=== PATIENT | female | born 1975 | race Caucasian/White ===

== ENCOUNTER 2017-03-21 17:31 | Emergency (ER) | payer SELFPAY ==
[~2017-03-21] VITALS: Ht 152.4 cm; Wt 100.0 kg
[2017-03-21 18:19] VITALS: BP 143/95
[2017-03-21] MEDS ORDERED: METHOCARBAMOL 500 MG TABLET PO ONE (20:00)
[2017-03-21] MEDS ORDERED: KETOROLAC TROMETHAMINE 30 MG/ML VIAL IM ONE (20:00)
[2017-03-21] MEDS ORDERED: HYDROCODONE/ACETAMINOPHEN 5-325 MG TABLET PO ONE (20:00)
[2017-03-21] MEDS ORDERED: PERTUSS(ACELL),DIPH,TET VAC/PF 0.5 ML VIAL IM ONE (20:15)
== END 2017-03-21 20:16 | disposition home or self-care (01) ==
LOC: EMS 17:37
DX: S30.811A Abrasion of abdominal wall, initial encounter (principal); R03.0 Elevated blood-pressure reading, without diagnosis of hypertension; V43.52XA Car driver injured in collision with other type car in traffic accident, initial encounter; Y93.89 Activity, other specified; Y92.89 Other specified places as the place of occurrence of the external cause; Y99.8 Other external cause status
CPT/HCPCS: 90471; 90715; 96372; 99284; J1885